=== PATIENT | male | born 1970 | race Hispanic/Latino ===

== ENCOUNTER 2019-06-18 14:53 | Emergency (ER) | payer OTHER ==
[~2019-06-18 14:53] MED LIST: ASPI-555 PO; FURO40TA5 PO; SPIR25TA6 PO
[2019-06-18 15:30] LABS: BASOPHILS % (AUTO) 0.7 % (0.0-5.0); EOSINOPHILS % (AUTO) 2.2 % (0.0-8.0); HEMATOCRIT 46.7 % (42-54); LYMPHOCYTES % (AUTO) 23.6 % (21.0-51.0); MEAN CORPUSCULAR HEMOGLOBIN 27.7 pg (27.0-33.0); MEAN CORPUSCULAR HGB CONC 33.6 g/dL (32.0-36.0); MEAN CORPUSCULAR VOLUME 82.4 fL (79-99); MONOCYTES % (AUTO) 7.6 % (3.0-13.0); NEUTROPHILS % (AUTO) 65.7 % (40.0-77.0); PLATELET COUNT (AUTO) 210 K/uL (130-400); RED BLOOD CELL COUNT(AUTO) 5.67 MIL/uL (4.50-6.20); RED CELL DISTRIBUTION WIDTH 12.7 % (11.0-15.5); WHITE BLOOD COUNT (AUTO) 5.9 K/uL (4.8-10.8)
[2019-06-18 15:44] LABS: INR 2.28 (0.85-1.15); PARTIAL THROMBOPLASTIN TIME 37.9 SEC (26.3-35.5); PROTHROMBIN TIME 23.2 SEC (9.6-11.6)
[2019-06-18 15:48] LABS: CREATININE 1.2 mg/dL (0.5-1.5); POTASSIUM 3.5 mmol/L (3.5-5.1)
[2019-06-18 15:52] LABS: ALBUMIN 3.6 g/dL (3.5-5.0); BILIRUBIN,TOTAL 0.7 mg/dL (0.2-1.0); CRP QUANTITATIVE 6.2 mg/L (0.00-9.0); TOTAL PROTEIN, SERUM 7.3 g/dL (6.0-8.3)
[2019-06-18] MEDS ORDERED: LIDOCAINE HCL-MPF 2% 5ML VIAL ONE (16:23)
[2019-06-18 16:34] LABS: ERYTHROCYTE SEDIMENTATION RATE 8 MM/HR (0-15)
[2019-06-18] MEDS ORDERED: CLINDAMYCIN HCL 150 MG CAP ONE (16:39)
== END 2019-06-18 16:46 | disposition home or self-care (01) ==
LOC: EDH 14:53
DX: K61.0 Anal abscess (principal); Z95.2 Presence of prosthetic heart valve; Z79.01 Long term (current) use of anticoagulants
CPT/HCPCS: 10060; 36415; 71045; 72192; 80053; 82550; 83605; 84484; 85025; 85610; 85651; 85730; 86140; 87040; 93005; 99285; J3490

== ENCOUNTER 2022-08-20 12:06 | Emergency (ER) | payer OTHER ==
[~2022-08-20] VITALS: Ht 188 cm; Wt 208.7 kg
[~2022-08-20 12:06] MED LIST changes: -ASPI-555 PO; +ASPI-556 PO
[2022-08-20] MEDS ORDERED: MORPHINE 4 MG SYG IVP ONE (13:30)
[2022-08-20] MEDS ORDERED: METH-662 PO (14:38)
[2022-08-20 14:49] VITALS: BP 140/88
== END 2022-08-20 14:50 | disposition home or self-care (01) ==
LOC: EDH 12:06
DX: M54.42 Lumbago with sciatica, left side (principal); M54.41 Lumbago with sciatica, right side; R20.0 Anesthesia of skin; Z79.82 Long term (current) use of aspirin
CPT/HCPCS: 99283; J2270

== ENCOUNTER 2023-09-15 13:41 | Emergency (ER) | payer BC, OTHER ==
[~2023-09-15] VITALS: Ht 188 cm; Wt 217.7 kg
[~2023-09-15 13:41] MED LIST changes: +METH-662 PO
[2023-09-15] MEDS: 0.9%NACL 1000ML 1,000 ML IV ONE ×2 (14:22→16:30)
[2023-09-15] MEDS: KETOROLAC 15MG/ML VIAL (15MG/ML) IV ONE (14:23)
[2023-09-15 14:26] LABS: BASOPHILS # (AUTO) 0.05 K/uL (0.00-0.20); BASOPHILS % (AUTO) 0.6 % (0.0-5.0); EOSINOPHILS # (AUTO) 0.23 K/uL (0.00-0.70); EOSINOPHILS % (AUTO) 2.8 % (0.0-8.0); HEMATOCRIT 54.8 % (42-54); IMMATURE GRANULOCYTE ABSOLUTE 0.01 K/uL (0-1); LYMPHOCYTES # (AUTO) 0.5 K/uL (1.0-4.8); LYMPHOCYTES % (AUTO) 5.6 % (21.0-51.0); MEAN CORPUSCULAR HGB CONC 34.7 g/dL (32.0-36.0); MEAN CORPUSCULAR VOLUME 80.8 fL (79-99); MONOCYTES # (AUTO) 0.4 K/uL (0.1-1.0); MONOCYTES % (AUTO) 4.4 % (3.0-13.0); NEUTROPHILS # (AUTO) 7.2 K/uL (1.8-7.7); NEUTROPHILS % (AUTO) 86.5 % (40.0-77.0); PLATELET COUNT (AUTO) 273 K/uL (130-400); RED BLOOD CELL COUNT(AUTO) 6.78 MIL/uL (4.50-6.20); RED CELL DISTRIBUTION WIDTH 14.3 % (11.0-15.5); WHITE BLOOD COUNT (AUTO) 8.3 K/uL (4.8-10.8)
[2023-09-15 14:42] LABS: CREATININE 1.5 mg/dL (0.5-1.3); POTASSIUM 4.3 mmol/L (3.5-5.1)
[2023-09-15 14:43] LABS: COVID19 (SARS ANTIGEN RAPID) PRESUMPTIVE NEGATIVE (NEGATIVE); INFLUENZA TYPE A Negative For Type A (NEGATIVE); INFLUENZA TYPE B Negative For Type B (NEGATIVE)
[2023-09-15 14:46] LABS: ALBUMIN 3.9 g/dL (3.5-5.0); BILIRUBIN,TOTAL 1.4 mg/dL (0.2-1.0); TOTAL PROTEIN, SERUM 7.5 g/dL (6.0-8.3)
[2023-09-15 15:17] LABS: INR 2.58 (0.85-1.15); PROTHROMBIN TIME 28.4 SEC (9.6-11.6)
[2023-09-15 15:19] LABS: PARTIAL THROMBOPLASTIN TIME 37.5 SEC (26.3-35.5)
[2023-09-15 15:37] LABS: B-TYPE NATRIURETIC PEPTIDE < 5 pg/mL (0-100)
[2023-09-15] MEDS ORDERED: IOHEXOL-350 75 ML VIAL IV ONE (15:52)
[2023-09-15] MEDS: ACETAMINOPHEN 500 MG TABLET PO ONE ×2 (16:30→19:28)
[2023-09-15] MEDS: ZOSYN 3.375GM +NS 50ML IV SCH ×2 (18:02→22:58)
[2023-09-15 19:28] VITALS: TEMP 101.7
[2023-09-15] MEDS: IBUPROFEN 600 MG TABLET PO ONE (19:29)
[2023-09-15] MEDS: MORPHINE 2 MG SYG IVP ONE (19:56)
[2023-09-15] MEDS: ONDANSETRON 4MG INJ IVP ONE (19:56)
[2023-09-15] MEDS: METOCLOPRAMIDE 10 MG/2 ML VIAL ONE (22:37)
[2023-09-15] MEDS ORDERED: ZOSYN 3.375GM +NS 50ML IV SCH (22:39)
[2023-09-15] MEDS: METOCLOPRAMIDE 10 MG/2 ML VIAL IVP ONE (22:58)
[2023-09-16] VITALS: BP 120/83; PULSE 108; RESP 22; O2SAT 94
== END 2023-09-16 01:37 | disposition short-term general hospital (02) ==
LOC: EDH 13:41
DX: A41.9 Sepsis, unspecified organism (principal); K43.0 Incisional hernia with obstruction, without gangrene; E86.0 Dehydration; Z79.01 Long term (current) use of anticoagulants; Z79.82 Long term (current) use of aspirin
CPT/HCPCS: 99291; 74177; 96365; 96375; 96361; 71045; 96366; 87426; 82550; 84484 ×2; 80053; 85025; 85610; 85730; 87040 ×2; 87804 ×2; 83605 ×2; 36415; 93005; 83880 ×2; J2270; J7030 ×2; J2405; J2543 ×2; J2765; J1885; Q9967; 99292